=== PATIENT | male | born 1970 | race Caucasian/White ===

== ENCOUNTER 2016-03-17 00:58 | Emergency (ER) | payer OTHER ==
[~2016-03-17] VITALS: Ht 182.9 cm; Wt 90.0 kg
[2016-03-17 01:03] VITALS: Ht 182.9 cm; Wt 90.0 kg
[2016-03-17] MEDS ORDERED: LORAZEPAM 2 MG INJ IV ONE (01:30)
[2016-03-17] MEDS ORDERED: DIPHENHYDRAMINE 50 MG INJ IV ONE (01:30)
[2016-03-17 01:33] LABS: BASOPHILS % 0.5 % (0.0-2.0); EOSINOPHILS # 0.4 10^3/ul (0.0-0.5); EOSINOPHILS % 4.3 % (0.0-7.0); HEMATOCRIT 37.4 % (42.0-52.0); HEMOGLOBIN 12.9 g/dl (14.0-18.0); LYMPHOCYTES # 1.7 10^3/ul (0.8-2.9); MEAN CORPUSCULAR HEMOGLOBIN 34.5 pg (29.0-33.0); MEAN CORPUSCULAR HGB CONC 34.4 g/dl (32.0-37.0); MEAN CORPUSCULAR VOLUME 100.2 fl (82.0-101.0); MEAN PLATELET VOLUME 8.4 fl (7.4-10.4); MONOCYTE # 0.9 10^3/ul (0.3-0.9); MONOCYTES % 10.7 % (0.0-11.0); NEUTROPHIL # 5.6 10^3/ul (1.6-7.5); NEUTROPHILS % 64.5 % (39.0-77.0); PLATELET COUNT 147 10^3/UL (140-440); RED BLOOD COUNT 3.73 10^6/ul (4.70-6.10); RED CELL DISTRIBUTION WIDTH 14.1 % (11.5-14.5); UNCORRECTED WBC 8.6 10^3/ul (4.8-10.8); WHITE BLOOD COUNT 8.6 10^3/ul (4.8-10.8)
[2016-03-17 01:38] LABS: CONDITION 1
[2016-03-17 01:40] LABS: ALBUMIN 4.4 g/dl (3.3-4.9); CHLORIDE 97 mmol/L (97-110)
[2016-03-17 01:41] LABS: POTASSIUM 3.8 mmol/L (3.5-5.1); SODIUM 137 mmol/L (135-144)
[2016-03-17 01:43] LABS: ALBUMIN/GLOBULIN RATIO 1.51; ALKALINE PHOSPHATASE 82 IU/L (42-121); ANION GAP 23 (8-16); ASPARTATE AMINO TRANSFERASE 225 IU/L (15-46); BILIRUBIN,INDIRECT 0.3 mg/dl (0-1.1); BILIRUBIN,TOTAL 0.3 mg/dl (0.2-1.3); BLOOD UREA NITROGEN 11 mg/dl (7-20); CARBON DIOXIDE 21 mmol/L (21-31); CREATININE 0.86 mg/dl (0.61-1.24); TOTAL PROTEIN 7.3 g/dl (6.1-8.1)
[2016-03-17 01:44] LABS: ALANINE AMINOTRANSFERASE 216 IU/L (13-69); CALCIUM 9.2 mg/dl (8.4-10.2); GLUCOSE 102 mg/dl (70-220)
[2016-03-17 01:47] LABS: ACETAMINOPHEN < 10.0 ug/ml (10.0-30.0); ETHANOL > 300.0 mg/dl; SALICYLATE < 1.0 mg/dl (5.0-30.0)
--- NOTE | 2016-03-17 03:57 | RADRPT ---
PROCEDURE: CT BRAIN WITHOUT CONTRAST CLINICAL INDICATION: 45-year-old male with headaches. TECHNIQUE: The study was performed utilizing [employer] VCT 64-slice CT scanner. Direct axial sections were obtained from the foramen magnum to the vertex without the use of intravenous contrast material. Sagittal and coronal reformations were obtained. Automated exposure control and iterativ e reconstruction techniques were utilized for this examination. The patient moved during the scanni ng therefore was rescanned. The images were viewed on a PACS workstation. CTD/vol = 90.0 mGy; Total Exam DLP = 1620.5 mGy-cm. COMPARISON: CT brain February 18, 2015. FINDINGS: There is mild prominence of the sulci and cisternal spaces consistent with diffuse volume loss. Oth erwise, the ventricles have a normal shape and position. There is no evidence for mass effect or mid line shift. There is no evidence for acute intra or extra-axial blood. The bony calvarium is intact . There is [id number] mucosal thickening within the inferior left frontal sinus and left anter ior ethmoid air cells with milder mucosal thickening within the right ethmoid air cells. There is e vidence for a plate and screws along the right anterior maxillary sinus wall and right lateral orbit al region. There plate and screws along the left lateral orbital and left lateral maxillary sinus w all region. The mastoid air cells are without significant soft tissue. IMPRESSION: 1. Mild diffuse volume loss. 2. Mucosal thickening within the left frontal and bilateral ethmoid air cells. 3. Bilateral ORIF facial bone fractures. .Neil Ochoa MD, Date Time Electronically viewed and signed by .Neil Ochoa MD, MD on 03/17/2016 03:57 .[place]
[2016-03-17 04:29] LABS: ADD UMIC YES; URINE BILIRUBIN (Dip) NEGATIVE (NEGATIVE); URINE BLOOD (Dip) TRACE (NEGATIVE); URINE COLOR LT. YELLOW (YELLOW); URINE GLUCOSE (Dip) NEGATIVE (NEGATIVE); URINE KETONES (Dip) NEGATIVE (NEGATIVE); URINE LEUKOCYTE ESTERASE (Dip) NEGATIVE (NEGATIVE); URINE NITRITE (Dip) NEGATIVE (NEGATIVE); URINE TOTAL PROTEIN (Dip) NEGATIVE (NEGATIVE); URINE UROBILINOGEN (Dip) 0.2 E.U./dL (0.1-1.0)
[2016-03-17 04:47] LABS: BACTERIA,URINE FEW
[2016-03-17 05:00] VITALS: BP 139/93; PULSE 109; RESP 12; TEMP 98.3
[2016-03-17] MEDS ORDERED: RANI150T9 PO (05:02)
--- NOTE | 2016-03-17 05:02 | ERD ---
ER Documentation Chief Complaint Date/Time DATE: 03/17/16 TIME: 04:58 Chief Complaint sp drug use, laceration right upper eyebrow HPI This is a 45-year-old male who presents to the emergency room after being brought in by EMS for evaluation of altered mental status. This patient was found lying down in a parking lot, police were called and when police and EMS arrived the patient began to become belligerent. According to EMS she is amount of alcohol. This patient was brought to the ER he jumped out of the ambulance and ran in the parking lot and fell forward and hit his head. He had no loss of consciousness. Security was called and he was brought to the ER for further evaluation. The patient states that he has been drinking alcohol but denies any other illicit drugs ROS All systems reviewed and are negative except as per history of present illness. Medications Home Meds Unable to Obtain Active Prescriptions or Reported Meds Allergies Allergies: Coded Allergies: No Known Allergy (Unverified , 09/23/15) PMhx/Soc History of Surgery: No Anesthesia Reaction: No Hx Neurological Disorder: No Hx Respiratory Disorders: Yes (copd) Hx Cardiac Disorders: Yes (htn) Hx Psychiatric Problems: No Hx Miscellaneous Medical Probl: No Hx Alcohol Use: Yes Hx Substance Use: No Hx Tobacco Use: Yes Smoking Status: Current every day smoker Physical Exam Vitals Vital Signs Date Time Temp Pulse Resp B/P Pulse Ox O2 Delivery O2 Flow Rate FiO2 03/17/16 02:30 120 12 136/66 100 Non Rebreather 15.0 03/17/16 02:30 98.3 120 18 136/66 100 03/17/16 02:30 98.3 120 18 136/66 100 03/17/16 02:15 98.2 123 18 118/72 100 03/17/16 02:00 98.2 110 18 105/62 98 03/17/16 01:45 98.2 104 18 114/59 96 03/17/16 01:30 98.2 113 18 125/61 97 03/17/16 01:15 98.2 115 18 122/59 98 03/17/16 01:03 97.4 119 20 151/99 96 03/17/16 01:00 98.2 112 18 123/58 96 Physical Exam INITIAL VITAL SIGNS: Reviewed by me GENERAL: The patient is well developed and appropriate for usual state of health in no apparent distress HEENT: 1 cm laceration over right orbital ridge, pupils equal, round, and reactive to light. EOMI. There is no scleral icterus. NECK: C-spine is soft and supple, there is no meningismus. There is no cervical lymphadenopathy. LUNGS: Clear to auscultation bilaterally. There are no rales, wheezes or rhonchi. HEART: Regular rate and rhythm, no murmurs, clicks, rubs or gallops. ABDOMEN: Soft, non-tender, non-distended. There are bowel sounds in all four quadrants. No rebound or guarding. EXTREMITIES: There is no peripheral cyanosis or edema. No focal swelling or erythema. NEUROLOGICAL: The patient moves all four extremities with 5/5 strength. Cranial nerves II - XII are intact. Normal gait. Alert and oriented SKIN: There is no apparent rash or petechiae. HEME/LYMPHATIC: There is no evidence of excessive bruising or lymphedema. PSYCHIATRIC: The patient does not appear anxious or depressed. Result Diagram: 03/17/16 01103/17/16 0110 Results 24 hrs Laboratory Tests Test 03/17/16 01:10 03/17/16 04:07 Acetaminophen Level < 10.0ug/ml Alanine Aminotransferase (ALT/SGPT) 216IU/L Albumin 4.4g/dl Albumin/Globulin Ratio 1.51 Alkaline Phosphatase 82IU/L Anion Gap 23 Aspartate Amino Transf (AST/SGOT) 225IU/L Basophils # 0.010^3/ul Basophils % 0.5% Blood Urea Nitrogen 11mg/dl Calcium Level 9.2mg/dl Carbon Dioxide Level 21mmol/L Chloride Level 97mmol/L Creatinine 0.86mg/dl Direct Bilirubin 0.00mg/dl Eosinophils # 0.410^3/ul Eosinophils % 4.3% Ethyl Alcohol Level > 300.0mg/dl Globulin 2.90g/dl Glucose Level 102mg/dl Hematocrit 37.4% Hemoglobin 12.9g/dl Indirect Bilirubin 0.3mg/dl Lymphocytes # 1.710^3/ul Lymphocytes % 20.0% Mean Corpuscular Hemoglobin 34.5pg Mean Corpuscular Hemoglobin Concent 34.4g/dl Mean Corpuscular Volume 100.2fl Mean Platelet Volume 8.4fl Monocytes # 0.910^3/ul Monocytes % 10.7% Neutrophils # 5.610^3/ul Neutrophils % 64.5% Nucleated Red Blood Cells # 0.010^3/ul Nucleated Red Blood Cells % 0.0/100WBC Platelet Count 93809^3/UL Potassium Level 3.8mmol/L Red Blood Count 3.7310^6/ul Red Cell Distribution Width 14.1% Salicylates Level < 1.0mg/dl Sodium Level 137mmol/L Total Bilirubin 0.3mg/dl Total Protein 7.3g/dl White Blood Count 8.610^3/ul Urine Bacteria FEW Urine Bilirubin NEGATIVE Urine Clarity CLEAR Urine Color LT. YELLOW Urine Glucose NEGATIVE% Urine Hemoglobin TRACE Urine Ketones NEGATIVE Urine Leukocyte Esterase NEGATIVE Urine Microscopic RBC 2-5/HPF Urine Microscopic WBC 0-2/HPF Urine Nitrite NEGATIVE Urine Specific [place] <=1.005 Urine Total Protein NEGATIVE Urine Urobilinogen 0.2 E.U./dL Urine pH 6.0 Current Medications Medications (Trade) Dose Ordered Sig/Checo Route PRN Reason Start Time Stop Time Status Last Admin Dose Admin Lorazepam (Ativan) 2 mg ONCE ONCE IV 03/17/16 01:30 03/17/16 01:31 DC 03/17/16 01:25 Diphenhydramine HCl (Benadryl) 50 mg ONCE ONCE IV 03/17/16 01:30 03/17/16 01:31 DC 03/17/16 01:25 Procedures/MDM CT head without: 1. Mild diffuse volume loss. 2. Mucosal thickening within the left frontal and bilateral ethmoid air cells. 3. Bilateral ORIF facial bone fractures. This 45-year-old male presents to the ER for evaluation of altered mental status. This patient was belligerent and intoxicated when he came to the emergency room. He was sedated with 2 mg intramuscular of Ativan, 50 mg of intramuscular Benadryl. Lab work was obtained including an alcohol level which is greater than 300. CT of the head does not show any intracranial hemorrhage. This patient will be discharged home and he is clinically sober. He did receive a tetanus shot for his laceration. His laceration is superficial, no need for sutures at this time. Departure Diagnosis: Primary Impression: Alcohol intoxication Additional Impressions: Closed head injury Normocytic anemia Condition: Stable GIUSEPPE AMAYA DO Mar 17, 2016 05:02
[2016-03-17 05:38] LABS: BARBITURATES NEGATIVE (NEGATIVE); BENZODIAZEPINES NEGATIVE (NEGATIVE); CANNABINOIDS NEGATIVE (NEGATIVE); COCAINE NEGATIVE (NEGATIVE); OPIATES NEGATIVE (NEGATIVE)
== END 2016-03-17 06:51 | disposition home or self-care (01) ==
LOC: E/R 00:58
DX: F10.129 Alcohol abuse with intoxication, unspecified (principal); S09.90XA Unspecified injury of head, initial encounter; D64.9 Anemia, unspecified; R40.2142 Coma scale, eyes open, spontaneous, at arrival to emergency department; R40.2222 Coma scale, best verbal response, incomprehensible words, at arrival to emergency department; R40.2362 Coma scale, best motor response, obeys commands, at arrival to emergency department; J44.9 Chronic obstructive pulmonary disease, unspecified; I10 Essential (primary) hypertension; F17.210 Nicotine dependence, cigarettes, uncomplicated; W01.10XA Fall on same level from slipping, tripping and stumbling with subsequent striking against unspecified object, initial encounter; Y92.481 Parking lot as the place of occurrence of the external cause
CPT/HCPCS: 70450; 80053; 80306; 80307; 81001; 85025; J1200; J2060; 36415; 81003; 96374; 96375